=== PATIENT | female | born 1990 | race Caucasian/White ===

== ENCOUNTER 2023-01-04 08:00 | Outpatient (CLI) | payer OTHER ==
[2023-01-04 16:53] LABS: BILIRUBIN,URINE NEGATIVE (NEGATIVE); GLUCOSE, URINE (UA) NEGATIVE (NEGATIVE); KETONES,URINE (UA) NEGATIVE (NEGATIVE); LEUKOCYTE ESTERASE, URINE NEGATIVE (NEGATIVE); NITRITE,URINE NEGATIVE (NEGATIVE); OCCULT BLOOD,URINE NEGATIVE (NEGATIVE); PH,URINE 6.5 PH (5.0-7.5); PROTEIN,URINE NEGATIVE (NEGATIVE); UROBILINOGEN,URINE 0.2 (NORMAL) E.U./dL (NORMAL)
[2023-01-04 16:55] LABS: CLARITY,URINE CLEAR (CLEAR)
[2023-01-04 17:01] LABS: BACTERIA,URINE Few /HPF (None Seen); RBC,URINE None Seen /HPF (0-5); SQUAMOUS EPITHELIAL CELL,UR FEW Squamous (<= Few); WBC,URINE 0-3 /HPF (0-5)
== END 2023-01-04 23:59 | disposition home or self-care (01) ==
LOC: LAB.WC 08:00
PROVIDERS: ATTEND Nurse Practitioner
DX: Z34.90 Encounter for supervision of normal pregnancy, unspecified, unspecified trimester (principal)
CPT/HCPCS: 81001; 87086

== ENCOUNTER 2023-01-07 12:37 | Outpatient (CLI) | payer OTHER ==
[2023-01-07 18:22] LABS: BASOPHILS % (AUTO) 0.5 %; EOSINOPHILS % (AUTO) 0.5 %; HCT - HEMATOCRIT 38.1 % (37.0-47.0); HGB - HEMOGLOBIN 12.5 g/dL (12.0-16.0); LYMPHOCYTES # (AUTO) 1.8 10^3/uL (1.5-3.5); LYMPHOCYTES % (AUTO) 24.2 %; MEAN CORPUSCULAR HEMOGLOBIN 29.8 pg (27.0-31.0); MEAN CORPUSCULAR HGB CONC 32.8 g/dL (32.0-36.0); MEAN CORPUSCULAR VOLUME 90.7 fL (81.0-99.0); MEAN PLATELET VOLUME 12.1 fL (7.9-10.8); MONOCYTES # (AUTO) 0.4 10^3/uL (0.0-1.0); MONOCYTES % (AUTO) 5.8 %; NEUTROPHILS # (AUTO) 5.2 10^3/uL (1.5-6.6); NEUTROPHILS % (AUTO) 68.9 %; PLT - PLATELET COUNT 270 10^3/uL (130-450); RED CELL DISTRIBUTION WIDTH 12.5 % (12.0-15.0); WHITE BLOOD COUNT 7.6 x10^3/uL (4.8-10.8)
[2023-01-07 18:29] LABS: BILIRUBIN,URINE NEGATIVE (NEGATIVE); GLUCOSE, URINE (UA) NEGATIVE (NEGATIVE); KETONES,URINE (UA) NEGATIVE (NEGATIVE); LEUKOCYTE ESTERASE, URINE NEGATIVE (NEGATIVE); NITRITE,URINE NEGATIVE (NEGATIVE); OCCULT BLOOD,URINE NEGATIVE (NEGATIVE); PH,URINE 7.5 PH (5.0-7.5); PROTEIN,URINE NEGATIVE (NEGATIVE); UROBILINOGEN,URINE 0.2 (NORMAL) E.U./dL (NORMAL)
[2023-01-07 19:13] LABS: BACTERIA,URINE Few /HPF (None Seen); CLARITY,URINE CLEAR (CLEAR); RBC,URINE None Seen /HPF (0-5); SQUAMOUS EPITHELIAL CELL,UR FEW Squamous (<= Few); WBC,URINE 0-3 /HPF (0-5)
[2023-01-09 03:10] LABS: HBsAG SCREEN Negative (Negative)
[2023-01-09 04:09] LABS: RPR Non Reactive (Non Reactive)
[2023-01-09 09:09] LABS: VARICELLA-ZOSTER AB IGG 167 index (Immune >165)
[2023-01-09 20:07] LABS: HCV AB Non Reactive (Non Reactive); HIV SCREEN 4TH GENERATION Non Reactive (Non Reactive)
== END 2023-01-07 12:38 | disposition home or self-care (01) ==
LOC: LAB.N 12:37
PROVIDERS: ATTEND Nurse Practitioner
DX: Z34.90 Encounter for supervision of normal pregnancy, unspecified, unspecified trimester (principal)
CPT/HCPCS: 36415; 81001; 85025; 86592; 86762; 86787; 86803; 86850; 86900; 86901; 87086; 87340; 87389

== ENCOUNTER 2023-01-14 08:00 | Outpatient (CLI) | payer OTHER ==
[2023-01-15 18:04] LABS: CHLAMYDIA TRACHOMATIS DNA NEGATIVE (NEGATIVE); NEISSERIA GONORRHOEAE DNA NEGATIVE (NEGATIVE); TRICHOMONAS VAGINALIS DNA NEGATIVE (NEGATIVE)
== END 2023-01-14 23:59 | disposition home or self-care (01) ==
LOC: LAB.WC 08:00
PROVIDERS: ATTEND Obstetrics & Gynecology
DX: Z11.3 Encounter for screening for infections with a predominantly sexual mode of transmission (principal)
CPT/HCPCS: 87491; 87591; 87661

== ENCOUNTER 2023-01-16 13:38 | Outpatient (CLI) | payer OTHER ==
--- NOTE | 2023-01-16 14:58 | Ultrasound Report ---
PROCEDURE: OB First Trimester w/TV INDICATIONS: POSITIVE TEST OUTSIDE/PRIOR DATING DATA: Last menstrual period (LMP): 11/07/2022. LMP-based estimated date of delivery (JONATHAN): 08/14/2023 First dating scan (date and location): 01/16/2023. Estimated date of delivery (JONATHAN) from first dating scan: 08/14/2023. TECHNIQUE: Real-time scanning was performed of the fetus and maternal pelvic organs, with image documentation. Endovaginal scanning was also performed to better visualize the fetus and maternal ovaries. COMPARISON: None. FINDINGS: Intrauterine gestational sac present. Embryo: 2.6 cm, 9 weeks 3 days Heart rate: 166 bpm. Other: Small perigestational fluid collection, lower uterine segment, 0.5 x 0.6 x 0.9 cm. Measurement variability in dating: +/- 4 weeks by LMP, +/- 7 days by mean sac diameter (use before 6 weeks gestation if crown-rump length not able to be measured), +/- 5 days by crown-rump length (6-12 weeks gestation). Maternal organs: Ovaries appear within normal limits. IMPRESSION: 1. Living early first trimester intrauterine with crown-rump length and heartbeat. 2. Small perigestational hemorrhage. Reviewed by: Jose Joseph MD on 01/16/2023 2:56 PM PST Approved by: Jose Joseph MD on 01/16/2023 2:56 PM PST Station ID: [id number]
== END 2023-01-16 13:39 | disposition home or self-care (01) ==
LOC: DI 13:38
PROVIDERS: ATTEND Nurse Practitioner
DX: O46.91 Antepartum hemorrhage, unspecified, first trimester (principal); Z3A.09 9 weeks gestation of pregnancy

== ENCOUNTER 2023-03-25 16:22 | Outpatient (CLI) | payer OTHER ==
[2023-03-27 04:08] LABS: ALPHA-1-ANTITRYPSIN SERUM 194 mg/dL (100-188)
[2023-03-28 21:07] LABS: AFP MOM 0.97 (.); AFP VALUE 63.2 ng/mL (.); DIA MOM 0.88 (.); DIA VALUE 177.76 pg/mL (.); DSR (BY AGE) 1 IN 613 (.); DSR (SECOND TRIMESTER) 1 IN 10000 (.); GEST. AGE ON COLLECTION DATE 19.7 WEEKS (.); HCG MOM 2.09 (.); HCG VALUE 64435 mIU/mL (.); INSULIN DEP DIABETES No (.); MULTIPLE GESTATION No (.); OPEN SPINA BIFIDA RISK 1 IN 10000 (.); RACE Caucasian (.); RESULTS Report (.); TEST RESULTS *Screen Negative* (.); TRISOMY 18 RISK Not increased (.); UE3 MOM 1.33 (.); UE3 VALUE 3.05 ng/mL (.); WEIGHT 117 lbs (.)
== END 2023-03-25 16:23 | disposition home or self-care (01) ==
LOC: LAB.N 16:22
PROVIDERS: ATTEND Obstetrics & Gynecology
DX: O99.519 Diseases of the respiratory system complicating pregnancy, unspecified trimester (principal); J93.83 Other pneumothorax
CPT/HCPCS: 36415; 81511; 82103

== ENCOUNTER 2023-04-02 08:41 | Outpatient (CLI) | payer OTHER ==
--- NOTE | 2023-04-02 11:02 | Ultrasound Report ---
PROCEDURE: OB 14+ Weeks INDICATIONS: SUPERVISION OF OUTSIDE/PRIOR DATING DATA: Last menstrual period (LMP): 11/07/2022. LMP-based estimated date of delivery (JONATHAN): 08/13/2022. First dating scan (date and location): 01/16/2023. Estimated date of delivery (JONATHAN) from first dating scan: 08/18/2023. The below data below was generated using the clinical JONATHAN of 08/14/2023 TECHNIQUE: Real-time scanning was performed of the fetus, with image documentation and biometric measurements. Endovaginal scanning: Not performed. COMPARISON: OB ultrasound 01/16/2023. FINDINGS: General: A single living intrauterine gestation is present. Presentation: Vertex Placenta: Placental position is anterior, without previa. Amniotic fluid index: 13.5 cm, within normal limits for gestational age. Largest pocket 4.8 cm. heart rate: 133 beats per minute. Maternal cervical canal: 3.9 cm long; normal length is 2.5 cm or more. biometrics: Biparietal diameter: 4.6 cm, 20 weeks 0 days. 18th percentile. Head circumference: 17.6 cm, 20 weeks 1 day. 13th percentile. Abdominal circumference: 15.4 cm, 20 weeks 4 days. 35th percentile. Femur length: 3.2 cm, 19 weeks 6 days. 12 percentile. Estimated gestational age from initial scan: 20 weeks 6 days Composite gestational age from present scan: 20 weeks 0 days Estimated weight and percentile: 342 grams, 17th percentile. Measurement variability for biometric dating: +/- 10 days from 12-20 weeks gestation, +/- 2 weeks fro m 20-30 weeks gestation, +/- 3 weeks for 30 weeks gestation or later. Anatomic survey: Neuro: Ventricles are non-dilated at less than 10 mm. Cisterna magna is normal at 3-11 mm. Cerebel lum is normal in size and morphology. Nuchal skin fold: Normal at less than 6 mm between 14-20 weeks gestational age. Face: Nose and lips, facial profile are normal. Spine: No evidence for spina bifida. Heart: 4-chambered heart is present, with normal ventricular outflow tracts. Diaphragm: Diaphragm is intact. Stomach: Left-sided stomach is present. Kidneys: No hydronephrosis. Normal is less than 5 mm in 2nd trimester, less than 7 mm in 3rd trimester. Cord: 3-vessel cord has orthotopic insertion. Bladder: Normal in size. Extremities: Not fully evaluated. Extremities are present. IMPRESSION: 1. Davis living intrauterine at 20 weeks 0 days based on today's ultrasound. This is co ncordant with the prior dating. Fetus is in the 17th percentile for weight. 2. Normal placenta and amniotic fluid. 3. extremities are not fully evaluated. Otherwise normal anatomic survey. Consider follow -up OB ultrasound. Reviewed by: Ladarius Bass MD on 04/02/2023 11:00 AM [facility] Approved by: Ladarius Bass MD on 04/02/2023 11:00 AM [facility] Station ID: [id number]
== END 2023-04-02 08:42 | disposition home or self-care (01) ==
LOC: DI 08:41
PROVIDERS: ATTEND Obstetrics & Gynecology
DX: Z34.92 Encounter for supervision of normal pregnancy, unspecified, second trimester (principal)

== ENCOUNTER 2023-04-30 10:23 | Outpatient (CLI) | payer OTHER ==
--- NOTE | 2023-04-30 19:00 | Ultrasound Report ---
PROCEDURE: OB Follow up INDICATIONS: SUPERVISION OF OUTSIDE/PRIOR DATING DATA: Last menstrual period (LMP): 11/07/2022. LMP-based estimated date of delivery (JONATHAN): 08/13/2022. First dating scan (date and location): Unknown Estimated date of delivery (JONATHAN) from first dating scan: Unknown. The below data below was generated using the clinical JONATHAN of 08/14/2023 TECHNIQUE: Real-time scanning was performed of the fetus, with image documentation and biometric measurements. COMPARISON: OB ultrasound 04/02/2023 FINDINGS: General: A single living intrauterine gestation is present. Presentation: Variable Placenta: Placental position is anterior, without previa. Amniotic fluid index: 13.1 cm, within normal limits for gestational age. Largest pocket 4.9 cm heart rate: 133 beats per minute. Maternal cervical canal: Closed . biometrics: Clinical gestational age : 24 weeks 6 days Other: Extremities are within normal limits. IMPRESSION: Single live intrauterine with gestational age of 24 weeks 6 days. Extremities are within normal limits. Reviewed by: Laurie Yo MD on 04/30/2023 6:59 PM PST Approved by: Laurie Yo MD on 04/30/2023 6:59 PM PST Station ID: [id number]
== END 2023-04-30 10:24 | disposition home or self-care (01) ==
LOC: DI 10:23
PROVIDERS: ATTEND Obstetrics & Gynecology
DX: Z34.92 Encounter for supervision of normal pregnancy, unspecified, second trimester (principal)

== ENCOUNTER 2023-05-27 10:53 | Outpatient (CLI) | payer OTHER ==
[2023-05-27 17:50] LABS: HCT - HEMATOCRIT 36.1 % (37.0-47.0); HGB - HEMOGLOBIN 11.5 g/dL (12.0-16.0); MEAN CORPUSCULAR HEMOGLOBIN 31.1 pg (27.0-31.0); MEAN CORPUSCULAR HGB CONC 31.9 g/dL (32.0-36.0); MEAN CORPUSCULAR VOLUME 97.6 fL (81.0-99.0); MEAN PLATELET VOLUME 10.9 fL (7.9-10.8); RED BLOOD COUNT 3.7 10^6/uL (4.20-5.40); RED CELL DISTRIBUTION WIDTH 13.1 % (12.0-15.0); WHITE BLOOD COUNT 8.3 x10^3/uL (4.8-10.8)
== END 2023-05-27 10:54 | disposition home or self-care (01) ==
LOC: LAB.N 10:53
PROVIDERS: ATTEND Nurse Practitioner
DX: Z34.90 Encounter for supervision of normal pregnancy, unspecified, unspecified trimester (principal)
CPT/HCPCS: 36415; 82950; 85027

== ENCOUNTER 2023-06-13 10:49 | Emergency (ER) | payer OTHER ==
[2023-06-13 11:14] VITALS: BP 105/53; O2SAT 100
--- NOTE | 2023-06-13 11:29 | ED Physician Documentation ---
PD HPI SKIN - Stated complaint Stated Complaint: BODY RASH,ITCHY - Chief complaint Chief Complaint: Wound - Additional information Additional information: 32-year-old female 31 weeks third trimester presents emergency department for a mild rash to right finger. Patient says that it started out as a flat rash that has eventually become raised and itchy and dry. This has been going on for a month now she now noticed it very mildly to her right face on her face is minimally itchy it is flat not raised she has not changed any recent product no new medications. She also reports that she is having increased acid reflux. She is an appoint with her [facility] on Saturday she is having no shortness of breath no chest pain no oral swelling no rash elsewhere on her body she says that she is here to the emergency department to try and find the source of what is causing this rash but is not wanting any medications or topicals to help with symptoms she just wants to know why the rash is here PD PAST MEDICAL HISTORY - Past Medical History Past Medical History: No Other Past Medical History: Spontaneous Pneumothorax Bilaterally 2014 and 2016 - Past Surgical History Past Surgical History: No - Present Medications Home Medications: Ambulatory Orders Medication Instructions Recorded Confirmed No122/Iron/Folic Acid 1 tab PO DAILY 06/13/23 06/13/23 [ Multi Tablet] - Allergies Allergies/Adverse Reactions: Allergies Allergy/AdvReac Type Severity Reaction Status Date / Time No Known Drug Allergies Allergy Verified 06/13/23 11:06 - Social History Does the pt smoke?: No Smoking Status: Never smoker Does the pt drink ETOH?: No PD ED PE NORMAL - Vitals Vital signs reviewed: Yes - General General: Alert and oriented X 3, No acute distress, Well developed/nourished - HEENT HEENT: PERRL, EOMI, Moist mucous membranes, Pharynx benign, Dentition benign - Neck Neck: No JVD - Respiratory Respiratory: No respiratory distress, Clear bilaterally - Abdomen Abdomen: Other () - Derm Derm: Other (left mild finger rash with dry skin, mild flat rash to right side of face.) - Psych Psych: Normal mood, Normal affect Results - Vitals Vitals: Vital Signs - 24 hr 06/13/23 11:00 Temperature 36.2 C L Heart Rate 79 Respiratory 16 Rate Blood Pressure 105/53 L O2 Saturation 100 Oxygen O2 Source Room air PD Medical Decision Making - ED course ED course: 32-year-old female presents the emergency department for mild rash. Patient says that she is not interested in treatment for the rash associated that she is fine with the symptoms of the rash but she just wants to know why she is getting the rash. I informed the patient that unfortunately in the emergency department we are unable to do skin testing or allergy testing that we are only here to treat emergent rash symptoms. [facility] did [facility] practitioner Aminta villar who said that she would be willing to see patient in her office at next available appointment. Patient was given Aminta Marinelli contact information will be reaching out to her today to make an appointment. Patient was told to follow-up with [facility] outpatient as well for further evaluation. Her vitals are stable she says that she denies any issues or concerns with her baby feels active in her belly. She is safe for discharge at this time I am not concerned this are related to any sort of anaphylaxis. Patient has all resources available to her to help further investigate what is going on with his very mild rash and all questions have been answered. Departure - Departure Disposition: 01 Home, Self Care Clinical Impression: Rash Instructions: Rash Skin Self Care Comments: Thank you for trusting us with your care, we have evaluated you for rash to right finger and the right portion of your face. We discussed possibly starting you on some topical medications but you wanted to hold off until you are able to follow-up with nurse practitioner Aminta Villar. Give her office a call you have her contact information on your phone she is anticipating a phone call from you and we will try to get you in as soon as possible. Please come back to the emergency department if you are noticing any shortness of breath, difficulty breathing or eating, or rash that is spreading throughout your entire body. Forms: PCP List Discharge Date/Time: 06/13/23 11:58
== END 2023-06-13 11:58 | disposition home or self-care (01) ==
LOC: ED 10:49
DX: O99.893 Other specified diseases and conditions complicating puerperium (principal); R21 Rash and other nonspecific skin eruption; Z3A.31 31 weeks gestation of pregnancy
CPT/HCPCS: 99281; 99283

== ENCOUNTER 2023-07-19 08:00 | Outpatient (CLI) | payer OTHER | END 2023-07-19 23:59 | disposition home or self-care (01) | LOC: LAB.WC 08:00 | PROVIDERS: ATTEND Obstetrics & Gynecology | DX: Z36.85 Encounter for antenatal screening for Streptococcus B (principal) | CPT/HCPCS: 87797 ==

== ENCOUNTER 2023-07-23 14:35 | Outpatient (CLI) | payer OTHER ==
--- NOTE | 2023-07-23 16:00 | Ultrasound Report ---
PROCEDURE: OB Follow up INDICATIONS: UTERINE SIZE DATE DISCREPENCY OUTSIDE/PRIOR DATING DATA: Last menstrual period (LMP): 11/07/2022. LMP-based estimated date of delivery (JONATHAN): 08/14/2023. First dating scan (date and location): 01/16/2023. Estimated date of delivery (JONATHAN) from first dating scan: 08/14/2023. The below data below was generated using the clinical JONATHAN of 08/14/2023 TECHNIQUE: Real-time scanning was performed of the fetus, with image documentation and biometric measurements. Endovaginal scanning: Not performed. COMPARISON: 04/30/2023 and 04/02/2023 FINDINGS: General: A single living intrauterine gestation is present. Presentation: Vertex Placenta: Placental position is anterior, without previa. Amniotic fluid index: 14.2 cm, deepest pocket is 6.0 cm, normal for gestational age. heart rate: 153 beats per minute. Maternal cervical canal: Closed and 3.9 cm long; normal length is 2.5 cm or more. biometrics: Biparietal diameter: 9.3 cm, 37 weeks 6 days, 88th percentile Head circumference: 34.0 cm, 39 weeks 1 day, 77th percentile Abdominal circumference: 33.1 cm, 37 weeks 0 days, 68th percentile Femur length: 6.7 cm, 34 weeks 5 days, 6th percentile Estimated gestational age from initial scan: 36 weeks 6 days Composite gestational age from present scan: 37 weeks 1 day Estimated weight and percentile: 3025 g, 53rd percentile Measurement variability in biometric dating: +/- 10 days from 12-20 weeks gestation, +/- 2 weeks from 20-30 weeks gestation, +/- 3 weeks at 30 weeks gestation or more. Other: Not applicable. IMPRESSION: Single live intrauterine is in vertex presentation. Estimated weight at the 53rd percentile. There is disproportionately short femur length, however composite gestational age is within 2 days of the expected gestational age. Correlate with biparietal height. Normal amniotic fluid volume. Reviewed by: Jeannie Morris MD on 07/23/2023 3:59 PM PDT Approved by: Jeannie Morris MD on 07/23/2023 3:59 PM PDT Station ID: [id number]
== END 2023-07-23 14:36 | disposition home or self-care (01) ==
LOC: DI 14:35
PROVIDERS: ATTEND Nurse Practitioner
DX: O26.843 Uterine size-date discrepancy, third trimester (principal); Z3A.37 37 weeks gestation of pregnancy

== ENCOUNTER 2023-08-17 18:34 | Outpatient (CLI) | payer OTHER ==
[2023-08-17 19:01] VITALS: BP 119/86
== END 2023-08-17 21:20 | disposition home or self-care (01) ==
LOC: WFO 18:34 → FBP 18:35 → WFO 21:20
PROVIDERS: ATTEND Obstetrics & Gynecology
DX: O47.1 False labor at or after 37 completed weeks of gestation (principal); Z3A.40 40 weeks gestation of pregnancy
CPT/HCPCS: 99213; 99214

== ENCOUNTER 2023-08-18 06:31 | Inpatient (IN) | payer OTHER ==
--- NOTE | 2023-08-18 09:34 | HISTORY & PHYSICAL EXAMINATION ---
Admit History - Visit Reason Visit Reason: Contractions - : 1 Parity: 0 Care: positive: [facility] Risk/History: positive: None Complications This : positive: None Smoking Status: Never smoker - Mother's Labs Mother's Blood Type: positive: O Mother's RH: positive: Positive GBS: positive: Group B Strep Positive Rubella Status: positive: Immune - Other Maternal History Other Maternal History: HPI: This 33yo @ 40+4 weeks by sure LMP and confirmed by 9+3 week ultrasound. She came into triage last night a few hours after her contractions s tarted. She contracted all last night and didn't have any sleep. Contractions became stronger and stronger. Upon arrival her cervix was 4/100/-3 posterior and vertex with intact membranes. She ambulated x2 hours and continue to contract, cervix changed to 5/100-3 posterior. We reviewed management options at length. She initially decided to go home to say goodbye to family but later changed her mind and desired to say for expectant managment. She has been a patient of [facility] for the duration of her which has remained uncomplicated. No Headache, visual changes or right upper quadrant abdominal pain. Denies nausea and vomiting. Denies urinary urgency or dysuria. ROS: All other symptoms reviewed and were negative except per HPI. LMP: 11/07/22 JONATHAN by LMP: 08/14/23 US: 01/16/2023 @ 9+3 c/w LMP Final JONATHAN: 08/14/2023 FOB: [facility], no risk of deployment. h/o pneumothorax x2 - once L (2014) & once R (2015) - will order [id number] testing. No cause found. ELEVATED [id number] -- also, this can be elevated in . SO: retest 6w post , if still elevated then refer to [facility] pul[facility] specialist in [place] for an opion. Lumbar/hip pain. PT referral 05/06 visit. Lagging biometry - -EFW on 08/01: 3025g, 53% -Femur length: 6th percentile Pre- Weight:112.0 BMI: 19.91 Blood type: O+ Antibody: Negative CBC: PLT 270 HCT 38.1 HGB 12.5 RUB: 16 VZV: 167 HBsAg: Negaive HepC: NR RPR/AB-EIA: NR HIV: NR PAP: 01/14/23 negative/HPV negative GC/CT: 01/14/2023 negative HSV: denies self/partner Genetic testing: desires NIPT. Quad negative Covid: not vaccinated Flu: declines FAS: 04/02 Placenta: anterior without previa Cord: 3VC PATRICA: 13.5 EFW: 342g 17%ile; extremities not fully evaluated. Follow-up ordered. 04/30- F/U us complete 50gm OGCT: 113 3HR GTT: TDAP: declines Breast Pump: 05/26 3rd trimester PLT 206 HCT 36.1 HGB 11.5 GBS:07/18 NKDA POSITIVE Delivery plan: Anticipate . Contraception: GBS POS- NO KNOWN DRUGS Physical exam: Normocephalic, atraumatic Heart RRR w/o M/G/R Lungs CTAB Abdomen gravid, soft, nontender. EFW 3200g FHR baseline 140, moderate variability, + accelerations, no decelerations Contractions palpate moderate every 3-6 minutes with soft resting tone SVE 5/100 posterior, vertex, membranes intact Bilateral LE's no edema Mood is good. Assessment: 33yo G1 PO 40+4 by sure LMP and confirmed by 9+3 weeks ultrasound Early labor FHR Cat I GBS POS Plan: Admit to [facility] for Expectant management Continuous monitoring/ Intermittent heart rate auscultation as appropriate Jacuzzi PRN. Nitrous oxide PRN. Epidural per maternal request Anticipate . - HPI Current EDU 08/20/23 Gestation 39 Weeks and 5 Days 1 Para 0 Vital Signs Temperature 36.5 C 08/18/23 06:47 Heart Rate 67 08/18/23 06:47 Respiratory Rate 16 08/18/23 06:47 Blood Pressure 129/78 08/18/23 06:47 Temperature 36.5 C 08/18/23 06:47 Heart Rate 67 08/18/23 06:47 Respiratory Rate 16 08/18/23 06:47 Blood Pressure 129/78 08/18/23 06:47 O2 Saturation If not protocol: Oxygen Flow, liters/minute - NST Procedure NST Procedure Start Date 08/18/23 Start Time 06:45 Stop Time 07:14 Vibroacoustic Stimulation Used No Patient States Movement Yes Meds/Allgy - Home Medications Home Medications: Ambulatory Orders Medication Instructions Recorded Confirmed No122/Iron/Folic Acid 1 tab PO DAILY 06/13/23 06/13/23 [ Multi Tablet] - Allergies Allergies/Adverse Reactions: Allergies Allergy/AdvReac Type Severity Reaction Status Date / Time No Known Drug Allergies Allergy Verified 06/13/23 11:06 Physical - Abdominal Exam Vital Signs: Temp Pulse Resp BP Pulse Ox O2 Flow Rate 36.5 C 67 16 129/78 08/18/23 06:47 08/18/23 06:47 08/18/23 06:47 08/18/23 06:47 Plan for Labor - Plan For Labor I expect patient to be DC'd or transferred within 96 hours.: Yes
[2023-08-18] MEDS ORDERED: lidocaine 1% 20 ML MDV ID PRN (09:42)
[2023-08-18] MEDS ORDERED: miSOPROStoL 200 MCG TABLET PR PRN (09:42)
[2023-08-18] MEDS ORDERED: ACETAMINOPHEN 500 MG TABLET PO PRN (09:42)
[2023-08-18] MEDS ORDERED: miSOPROStoL 200 MCG TABLET BC PRN (09:42)
[2023-08-18] MEDS ORDERED: fentaNYL 100 MCG/2 ML VIAL IVP PRN (09:42)
[2023-08-18] MEDS ORDERED: METHYLERGONOVINE 0.2 MG/ML VIAL IM PRN (09:42)
[2023-08-18] MEDS ORDERED: OXYTOCIN 10 UNIT/ML VIAL IM PRN (09:42)
[2023-08-18] MEDS ORDERED: TERBUTALINE 1 MG/ML VIAL SUBQ PRN (09:42)
[2023-08-18] MEDS ORDERED: OXYTOCIN/SODIUM CHLORIDE 500 ML IV PRN (09:42)
[2023-08-18] MEDS ORDERED: TRANEXAMIC ACID IN NACL 1,000 MG/100 ML BAG IV PRN (09:42)
[2023-08-18] MEDS ORDERED: CARBOPROST TROMETHAMINE 250 MCG/ML VIAL IM PRN (09:42)
[2023-08-18] MEDS: LACTATED RINGERS 1,000 ML IV PRN (10:00)
[2023-08-18] MEDS: AMPICILLIN 2 GM in SODIUM CHLORIDE 0.9% MINIBAG 100 ML IV ONE (10:01)
[2023-08-18 13:51] LABS: BASOPHILS % (AUTO) 0.2 %; EOSINOPHILS # (AUTO) 0.1 10^3/uL (0.0-0.7); EOSINOPHILS % (AUTO) 0.6 %; HCT - HEMATOCRIT 41.6 % (37.0-47.0); HGB - HEMOGLOBIN 13.4 g/dL (12.0-16.0); LYMPHOCYTES # (AUTO) 1.6 10^3/uL (1.5-3.5); LYMPHOCYTES % (AUTO) 12.8 %; MEAN CORPUSCULAR HEMOGLOBIN 30.5 pg (27.0-31.0); MEAN CORPUSCULAR HGB CONC 32.2 g/dL (32.0-36.0); MEAN CORPUSCULAR VOLUME 94.8 fL (81.0-99.0); MONOCYTES # (AUTO) 0.5 10^3/uL (0.0-1.0); MONOCYTES % (AUTO) 4.1 %; NEUTROPHILS # (AUTO) 10.2 10^3/uL (1.5-6.6); NEUTROPHILS % (AUTO) 81.5 %; PLT - PLATELET COUNT 209 10^3/uL (130-450); RED BLOOD COUNT 4.39 10^6/uL (4.20-5.40); RED CELL DISTRIBUTION WIDTH 13.4 % (12.0-15.0); WHITE BLOOD COUNT 12.6 x10^3/uL (4.8-10.8)
[2023-08-18] MEDS: AMPICILLIN 1 GM in SODIUM CHLORIDE 0.9% MINIBAG 100 ML IV SCH (14:05)
--- NOTE | 2023-08-18 20:34 | PROVIDER PROGRESS NOTE ---
Labor Progress Note - Uterine Monitoring Uterine Monitoring Mode: positive: External toco Contraction Frequency (min/apart): 2-4 Contraction Intensity: positive: Moderate to strong Uterine Resting Tone: positive: Soft - Monitoring Monitor Mode: positive: External ultrasound Heart Rate Baseline: 145 Heart Rate Variability: positive: Moderate (6-25 bmp) Accelerations: positive: Present, 15x15 Decelerations: positive: None Strip Review: positive: Category I - Vaginal Exam Dilation (in cm): 7 Effacement (%): 100 Station: -1 Cervical Position: Anterior - Labor Progress Note Labor Progress Note/Additional Text: S: Intermittent time in labor tub. Breathing and moving through contractions for pain management. Increasing discomfort with contractions. Believes she may still want an epidural but feels she is coping well at the moment. Continues to decline augmentation. Feeling significant pressure in her lower back during contractions. Tolerating position changes, coping well, understands situation after our discussions, fells well informed. O: FHR baseline 145, moderate variability, + accels, - decels. Overall reassuring FHT with moderate variability maintained throughout. Contractions palpate moderately with soft resting tone. SVE 7/100/-1, anterior. Vertex. Membranes intact. Will reach out to our clinical team if she desires repeat cervical exam. A: 33yo @ 40+4 wks gestation by sure LMP Spontaneous onset active labor without augmentation or pharmaceutical pain management. FHR Category I GBS positive- ampicillin x3 doses Rh Neg P: Intermittent monitoring PRN nitrous and Epidural per maternal request. encourage position changes, ambulation, Jacuzzi and birthing stool Reviewed plan of care with patron attendant physician Anticipate .
[2023-08-19] MEDS ORDERED: ROPIVACAINE 0.2% 200 MG/100 ML BAG EP ONE (01:27)
[2023-08-19] MEDS ORDERED: LIDOCAINE 2%-EPI 1:100000 20 ML MDV ONE (01:27)
[2023-08-19] MEDS ORDERED: NALOXONE 0.4 MG/ML VIAL IVP PRN ×3 (01:54→15:14)
[2023-08-19] MEDS ORDERED: ePHEDrine 50 MG/ML VIAL IVP PRN ×2 (01:54→15:05)
[2023-08-19] MEDS ORDERED: ROPIVACAINE 0.2% 200 MG/100 ML BAG EP PRN (01:54)
--- NOTE | 2023-08-19 02:29 | ANESTHESIA ---
Pre-Anesthesia VS, & Labs - Diagnosis Active labor - Procedure vaginal delivery Vital Signs: Temp Pulse Resp BP Pulse Ox O2 Flow Rate 37.0 C 67 16 129/78 08/18/23 16:05 08/18/23 06:47 08/18/23 06:47 08/18/23 06:47 Height: 5 ft 3 in Weight (kg): 69.853 kg Body Mass Index: 27.3 BMI Classification: Overweight - NPO Other (clear liquids during labor) - Is Patient ?: Yes - Lab Results Current Lab Results: Laboratory Tests 08/18/23 09:45: WBC 12.6 H, RBC 4.39, Hgb 13.4, Hct 41.6, MCV 94.8, MCH 30.5, MCHC 32.2, RDW 13.4, Plt Count 209, MPV 13.0 H, Neut # (Auto) 10.2 H, Lymph # (Auto) 1.6, Josephine # (Auto) 0.5, Eos # (Auto) 0.1, Baso # (Auto) 0.0, Absolute Nucleated RBC 0.00, Nucleated RBC % 0.0 08/18/23 09:45: Blood Type O POSITIVE, Antibody Screen NEGATIVE Lab results reviewed: Yes Fish Bones: 08/18/23 09:45 Home Medications and Allergies Active Medications Acetaminophen (Acetaminophen 500 Mg Tablet) 1,000 mg PO Q8H PRN PRN Reason: Mild Pain or Fever>38C(100.4F) Carboprost Tromethamine (Carboprost Tromethamine 250 Mcg/Ml Vial) 250 mcg IM .ONCE PRN PRN Reason: Hemorrhage Ephedrine Sulfate (Ephedrine 50 Mg/Ml Vial) 5 mg IVP Q5M PRN PRN Reason: For SBP<100;give until SBP>100 Fentanyl (Fentanyl 100 Mcg/2 Ml Vial) 50 mcg IVP Q1H PRN PRN Reason: Severe Pain (score 7-10) Lactated Ringer's (Lr) 500 mls @ 999 mls/hr IV PRN PRN PRN Reason: hypotension/ distress Last Admin: 08/18/23 10:00 Dose: 999 mls/hr Oxytocin/Sodium Chloride (Pitocin/Sodium Chloride) 500 mls @ 999 mls/hr IV PRN PRN; Protocol PRN Reason: POST- HEMORR PREVENTION Tranexamic Acid (Tranexamic 1,000 Mg/100ml-Nacl) 1,000 mg in 100 mls @ 600 mls/hr IV Q30M PRN PRN Reason: EBL >1200mL and within 3hr Ampicillin Sodium 1 gm/ Sodium (Chloride) 100 mls @ 200 mls/hr IV Q4H SARINA Stop: 08/20/23 14:00 Last Infusion: 08/18/23 22:53 Dose: Infused Ropivacaine (Naropin 0.2%) 200 mg in 100 mls @ 0 mls/hr EP PRN PRN; Protocol PRN Reason: PAIN Lidocaine HCl (Lidocaine 1% 20 Ml Mdv) 20 ml ID .ONCE PRN PRN Reason: PERINEAL REPAIR Stop: 08/21/23 09:42 Methylergonovine Maleate (Methylergonovine 0.2 Mg/Ml Vial) 0.2 mg IM .ONCE PRN PRN Reason: Hemorrhage Misoprostol (Misoprostol 200 Mcg Tablet) 600 mcg BC .ONCE PRN PRN Reason: Hemorrhage Misoprostol (Misoprostol 200 Mcg Tablet) 800 mcg SC .ONCE PRN PRN Reason: Hemorrhage Naloxone HCl (Naloxone 0.4 Mg/Ml Vial) 0.1 mg IVP Q2M PRN PRN Reason: RR<8 Oxytocin (Oxytocin 10 Unit/Ml Vial) 10 unit IM .ONCE PRN PRN Reason: Step One if no IV access. Sodium Chloride (Sodium Chloride Flush 0.9% 10 Ml Syringe) 10 ml IVP PRN PRN PRN Reason: NEEDED PER PROVIDER ORDERS Sodium Chloride (Sodium Chloride Flush 0.9% 10 Ml Syringe) 10 ml IVP Q8H SARINA Terbutaline Sulfate (Terbutaline 1 Mg/Ml Vial) 0.25 mg SUBQ .ONCE PRN PRN Reason: Tachystole No122/Iron/Folic Acid [ Multi Tablet] 1 tab PO DAILY 06/13/23 Allergies/Adverse Reactions: Allergies Allergy/AdvReac Type Severity Reaction Status Date / Time No Known Drug Allergies Allergy Verified 06/13/23 11:06 Anes History & Medical History - Anesthetic History Anesthesia Complications: reports: No previous complications - Medical History Cardiovascular: reports: None Pulmonary: reports: Other (Spontaneous pneumothorax) Gastrointestinal: reports: None Urinary: reports: None Neuro: reports: None Musculoskeletal: reports: None Endocrine/Autoimmune: reports: None Blood Disorders: reports: None Skin: reports: None Smoking Status: Never smoker Psychosocial: reports: No issues indicated History of Cancer?: No - Surgical History Cardiothoracic: reports: Other (Bilateral thoracotomy) Gynecologic: reports: Breast implants - Obstetrical History : 1 Parity: 0 Events: reports: None Complications: reports: None Exam General: Alert, Oriented x3, Cooperative, No acute distress Dental: WNL Mouth Openin Fingerbreadth Neck Mobility: Normal Mallampati classification: I Thyromental Distance: 4-6 cm Mental/Cognitive Status: Alert/Oriented X3, Normal for patient Plan Anesthesia Type: Epidural Consent for Procedure(s) Verified and Reviewed: Yes Code Status: Attempt Resuscitation ASA classification: 2-Mild systemic disease Is this case an emergency?: No
[2023-08-19] MEDS: LACTATED RINGERS 1,000 ML IV SCH (04:51)
--- NOTE | 2023-08-19 06:37 | PROVIDER PROGRESS NOTE ---
Labor Progress Note - Uterine Monitoring Uterine Monitoring Mode: positive: External toco Contraction Frequency (min/apart): 2-3.5 : 140 Contraction Intensity: positive: Strong Uterine Resting Tone: positive: Soft - Monitoring Monitor Mode: positive: External ultrasound Heart Rate Baseline: 130 Heart Rate Variability: positive: Moderate (6-25 bmp) Accelerations: positive: Present, 15x15 Decelerations: positive: None Strip Review: positive: Category I - Labor Progress Note Labor Progress Note/Additional Text: S: Left side lying. Comfortable with epidural and dozing on off. She was able to get a little sleep throughout the night. tolerating position changes, coping well, understands situation after our discussions, feels well informed. O: FHR baseline 130-135, moderate variability, + accels, - significant decels. Overall reassuring with moderate variability maintained throughout. SVE 8/90/-2 mid. Vertex. Membranes Ruptured. Clear fluid. A: 33yo @ 40+5 wks gestation by sure LMP Spontaneous labor FHR Category I GBS positive P: Initiate pitocin now for labor augmentation at 2mU/mL with titration per protocol. Continuous monitoring. Maintain epidural for pain management encourage rotations in bed on peanut ball Reviewed plan of care with oncall physician who placed pitocin order Anticipate . ASHA Hall, Student Nurse Academic Affairs Director
[2023-08-19] MEDS: OXYTOCIN/SODIUM CHLORIDE 500 ML IV SCH (07:09)
[2023-08-19] MEDS: ROPIVACAINE 0.2% 200 MG/100 ML BAG EP PRN (10:35)
[2023-08-19] MEDS ORDERED: PHENYLEPHRINE 10 MG/ML VIAL ONE (12:45)
[2023-08-19] MEDS ORDERED: AZITHROMYCIN INJ 500 MG in SODIUM CHLORIDE 0.9% 250 ML IV SCH ×2 (13:00→14:00)
[2023-08-19] MEDS ORDERED: DEXMEDETOMIDINE 200 MCG/2 ML VIAL ONE (13:22)
[2023-08-19] MEDS ORDERED: SODIUM CHLORIDE 0.9% 10 ML VIAL IVP ONE ×2 (14:00→14:01)
[2023-08-19] MEDS ORDERED: ROPIVACAINE 0.5% PF 20 ML VIAL ONE (14:00)
[2023-08-19] MEDS ORDERED: MORPHINE 2 MG/ML CARPUJECT IVP PRN (15:05)
[2023-08-19] MEDS ORDERED: fentaNYL 100 MCG/2 ML VIAL IVP PRN (15:05)
[2023-08-19] MEDS ORDERED: METOCLOPRAMIDE 10 MG/2 ML VIAL IVP PRN ×2 (15:05→15:14)
[2023-08-19] MEDS ORDERED: ATROPINE ABBOJECT 1 MG/10 ML SYRINGE IVP PRN (15:05)
[2023-08-19] MEDS ORDERED: ONDANSETRON 4 MG/2 ML VIAL IVP PRN ×2 (15:05→15:14)
[2023-08-19] MEDS ORDERED: HYDROmorphone 0.5 MG/0.5 ML SYRINGE IVP PRN (15:05)
--- NOTE | 2023-08-19 15:11 | PHARMACY PROGRESS NOTE ---
- Best Possible Medication History Admit Date and Time: 08/18/23 0942 Processed by: Nursing Medications reviewed in ED?: No Patient Interview: Pt unable to participate Secondary Source(s): Insurance records As the person ultimately responsible for medication therapy, providers are able to order a medication from an existing home medication list in [facility] via the "Reconcile Routine" prior to Confirmation of that medication by client support associate. S uch practice is discouraged except when the physician, in their clinical judgment, deems that a medical need exists for a medication without regard to previous use.
[2023-08-19] MEDS ORDERED: SIMETHICONE CHEW 80 MG TABLET PO PRN (15:14)
[2023-08-19] MEDS ORDERED: diphenhydrAMINE 25 MG CAPSULE PO PRN (15:14)
[2023-08-19] MEDS ORDERED: LABETALOL 20 MG/4 ML SYRINGE IVP PRN ×3 (15:14)
[2023-08-19] MEDS ORDERED: hydrALAZINE INJ 20 MG/ML VIAL IVP PRN ×2 (15:14)
[2023-08-19] MEDS ORDERED: CALCIUM CARBONATE CHEW 500 MG TABLET PO PRN (15:14)
[2023-08-19] MEDS ORDERED: NIFEdipine 10 MG CAPSULE PO PRN (15:14)
[2023-08-19] MEDS ORDERED: OXYTOCIN/SODIUM CHLORIDE 500 ML IV PRN (15:14)
--- NOTE | 2023-08-19 15:20 | PROVIDER PROGRESS NOTE ---
Progress Note at 0850 IUPC was placed. no cervical change, really for about 12 hours. not adequate contractions. will see what IUPC and more pitocin gets us, otherwise she will need a c section. VSS fetus cat 1 no concerns. gbs + and has had 4 dose amp.
--- NOTE | 2023-08-19 15:22 | HISTORY & PHYSICAL EXAMINATION ---
HPI - Admitted From Admitted from: OB - History Obtained From Records Reviewed: RN notes reviewed History obtained from: Patient - History of Present Illness HPI Comment/Other: has been about 7 cm since last evening. now with adequate contractions for many hours and minimal change. agrees to c section. 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: Breast implants Cardiovascular: positive: Other (Bilateral thoracotomy) Social & Family Hx - Social History Does the pt smoke?: No Smoking Status: Never smoker Does the pt drink ETOH?: No Meds/Allgy - Home Medications Home Medications: Ambulatory Orders Medication Instructions Recorded Confirmed No122/Iron/Folic Acid 1 tab PO DAILY 06/13/23 08/18/23 [ Multi Tablet] - Allergies Allergies/Adverse Reactions: Allergies Allergy/AdvReac Type Severity Reaction Status Date / Time No Known Drug Allergies Allergy Verified 06/13/23 11:06 Exam - Vital Signs Reviewed Vital Signs: Yes Vital Signs: Vital Signs x48h Temp Pulse Resp BP Pulse Ox 08/19/23 15:00 97.5 F L 72 20 94/60 99 08/19/23 14:59 97.5 F L 76 20 107/50 L 99 08/19/23 14:50 97.5 F L 76 20 107/50 L 99 08/19/23 14:45 97.5 F L 78 20 108/79 99 - Physical Exam General Appearance: positive: No acute distress Respiratory: positive: No respiratory distress Cardiovascular: positive: Regular rate & rhythm Comments/Other: cervix 8/+1 minimal change since last exam. FHT category 1. some early decels. Results - Lab Results Fish Bones: 08/18/23 09:45 Impression/Plan - Problem List Problem List: failure to dilate past 8 cm. IUPC with adequate contractions for at least the last 3 hours. multiple position changes. feeling more pressure. plan primary low transverse c section. procedure, risks discussed. consents signed.
--- NOTE | 2023-08-19 15:30 | OPERATIVE REPORT ---
Operative Report - General Admit Date: 08/18/23 Procedure Date: 08/19/23 Planned Procedure: low transverse c section Pre-Op Diagnosis: term in spontaneous labor. Arrest of dilation Procedure Performed: primary low transverse c section Post Op Diagnosis: same - Procedure Note Primary Surgeon: Isa Van MD Secondary Surgeon: ASHA Beyer Anesthesia Provider: Margarito Escobar Anesthesia Technique: Epidural, Regional block (with TAP block) Pathology: none IV Fluids (mL): 600 Estimated Blood Loss (mL): 300 Urine Output (mL): 175 Drain/Tube Type: Other (oquendo in bladder) Findings: live male infant with Apgars of 8/8. 3616 gram. 19.5 in long. uterus, tubes and ovaries appear normal. Complications: none - Other Other Information/Narrative: Indications for Procedure: Patient is a 33 year-old woman, G1 wtih at 40+ weeks. presented in spontaneous labor and progressed well to 7 cm. She received epidural after no further change, pitocin, SROM still 7 cm after 12+ hours. IUPC placed. adequate contractions over next 3 hours and minimal change. recommend LTCS. She has signed consents. Procedure Details The risks, benefits, complications, treatment options, and expected outcomes were discussed with the patient. The patient concurred with the proposed plan, giving informed consent. The patient was taken to the Operating Room. She had just received her 5th dose of Ampicillin for GBS so Cefazolin was not given. She had sequential compression devices on her lower extremities. Oquendo catheter was in place from her epidural. Azithromycin 500 mg was ordered and then did not go in until after delivery. A Time Out was held and the above information confirmed. The patient was prepped in the usual sterile manner. Drapes were placed. Anesthesia was tested and found to be adequate. A Pfannenstiel incision was made and carried down through the subcutaneous tissue to the fascia. Fascial incision was made and extended transversely. The fascia was from the underlying rectus tissue superiorly and inferiorly. The peritoneum was identified and entered. Peritoneal incision was stretched. The Oswaldo retractor was placed and rolled down. The uterus was palpated to examine lie. A low transverse uterine incision was made. The incision was stretched manually. Bag of water was entered during the process and fluid was clear. The baby's head was elevated through the incision. The baby was delivered and brought up towards her chest to show mom. Baby was dried and stimulated. I waited for 1 minute to clamp the cord. After the umbilical cord was clamped and cut, cord blood was obtained for evaluation. The placenta was removed intact using gentle traction and appeared normal. The uterine outline, tubes and ovaries appeared normal. The uterine incision was closed with running locked sutures of 0 Monocryl suture. A second horizontal imbricating layer was placed with the same suture. Hemostasis was observed. Tubes and ovaries were examined. A small paratubal cyst on the left was clamped off and removed with bovie. The Oswaldo retractor was removed. Rectus muscles were examined carefully for bleeding. The fascia was then reapproximated with running sutures of 0 Vicryl. The subcutaneous tissue was brought together with 3.0 Monocryl suture and the skin was closed with 4.0 Vicryl in subcuticular fascia. Wide steri strip was placed over the wound. Bandage was placed. Uterus was expressed. Fundus was firm. Patient was then brought to the PACU in stable condition. Instrument, sponge, and needle counts were correct prior the abdominal closure and at the conclusion of the case. My certified surgical assistant was scrubbed and present during the entire procedure and assisted with visualization, hemostasis, fundal pressure for delivery, and closure. Findings: Tubes, ovaries and uterus all appeared normal. Drains: Oquendo catheter to gravity Specimens: none Complications: None; patient tolerated the procedure well. Condition: stable Plan: Routine post op care
[2023-08-19] MEDS ORDERED: LACTATED RINGERS 1,000 ML IV SCH (16:00)
--- NOTE | 2023-08-19 16:51 | ANESTHESIA POST OP EVALUATION ---
Anesthesia Post Eval - Post Anesthesia Eval Vitals: Last Vital Signs Temp 36.4 C L 08/19/23 15:00 Pulse 72 08/19/23 15:00 Resp 20 08/19/23 15:00 BP 94/60 08/19/23 15:00 Pulse Ox 99 08/19/23 15:00 O2 Flow Rate CV Function Including HR & BP: Stable Pain Control: Satisfactory Nausea & Vomiting: Negative Mental Status: Baseline Respiratory Status: Airway Patent Hydration Status: Satisfactory Anesthesia Complications: None
[2023-08-19] MEDS: KETOROLAC 30 MG/ML VIAL IVP SCH (16:59)
[2023-08-19] MEDS: ACETAMINOPHEN 500 MG TABLET PO SCH (16:59)
[2023-08-19] MEDS: SODIUM CHLORIDE FLUSH 0.9% 10 ML SYRINGE IVP SCH (23:09)
[2023-08-19] MEDS: DOCUSATE SODIUM 100 MG CAPSULE PO SCH (23:09)
[2023-08-20] MEDS: oxyCODONE 5 MG TABLET PO PRN (00:09)
[2023-08-20] MEDS: SODIUM CHLORIDE FLUSH 0.9% 10 ML SYRINGE IVP PRN (05:28)
[2023-08-20 07:48] LABS: HCT - HEMATOCRIT 33.1 % (37.0-47.0); HGB - HEMOGLOBIN 10.6 g/dL (12.0-16.0); MEAN CORPUSCULAR HEMOGLOBIN 30.5 pg (27.0-31.0); MEAN CORPUSCULAR VOLUME 95.1 fL (81.0-99.0); MEAN PLATELET VOLUME 12.1 fL (7.9-10.8); RED BLOOD COUNT 3.48 10^6/uL (4.20-5.40); RED CELL DISTRIBUTION WIDTH 13.6 % (12.0-15.0); WHITE BLOOD COUNT 12.9 x10^3/uL (4.8-10.8)
[2023-08-20] MEDS: IBUPROFEN 600 MG TABLET PO SCH (11:45)
[2023-08-20] MEDS: PRENATAL VITAMIN TABLET PO SCH (11:45)
--- NOTE | 2023-08-20 12:22 | PROVIDER PROGRESS NOTE ---
Subjective - Prog Note Date Prog Note Date: 08/20/23 Prog Note Time: 12:00 - Subjective Pt reports feeling: Improved Subjective: Comfortable with pain medications. Appropriate lochia. Ambulating. Voiding. Passing flatus. Tolerating regular diet. . Mood is good. Objective - Vital Signs/Intake & Output Reviewed Vital Signs: Yes Vital Signs: Vital Signs x48h Temp Pulse Resp BP Pulse Ox 08/20/23 08:00 98.0 F 67 16 103/54 L 08/20/23 05:00 61 15 94/52 L 97 Intake & Output: Intake & Output 08/17/23 08/18/23 08/19/23 08/20/23 23:59 23:59 23:59 23:59 Intake Total 1300 1727.233 291.667 Output Total 1100 1050 Balance 1300 627.233 -758.333 - Objective General Appearance: positive: No acute distress Eyes Bilateral: positive: EOMI Respiratory: positive: No respiratory distress Abdomen: positive: Other (Dressing c/d/i) Skin: positive: Color nml Extremities: positive: Non-tender Neurologic/Psychiatric: positive: Oriented x3 - Lab Results Fish Bones: 08/20/23 07:34 Other Labs: Lab Results x24hrs 08/20/23 Range/Units 07:34 WBC 12.9 H (4.8-10.8) x10^3/uL RBC 3.48 L (4.20-5.40) 10^6/uL Hgb 10.6 L (12.0-16.0) g/dL Hct 33.1 L (37.0-47.0) % MCV 95.1 (81.0-99.0) fL MCH 30.5 (27.0-31.0) pg MCHC 32.0 (32.0-36.0) g/dL RDW 13.6 (12.0-15.0) % Plt Count 135 (130-450) 10^3/uL MPV 12.1 H (7.9-10.8) fL Assessment/Plan - Problem List (1) care following delivery Impression: 33yo s/p PCD 08/19/23 for FTP (7cm), POD#1 doing well - Continue , postoperative care - Anticipate discharge tomorrow
--- NOTE | 2023-08-21 13:53 | PROVIDER PROGRESS NOTE ---
Subjective - Subjective Subjective: Subjective Patient reports she is doing well. Lochia appropriate. Denies heavy bleeding. Ambulating. Pelvic and abdominal pain well-controlled. Tolerating oral intake. Diet: Regular. Voiding without difficulty. Passing flatus. Denies BM. Patient is bonding with baby in room Breast feeding going well. Denies feeling lightheaded, dizzy or excessively fatigued. Objective General: Alert, oriented, no apparent distress. Cardiovascular: Regular rate. Regular rhythm. Lungs: No increased work of breathing. Abdomen: Uterus firm. Below umbilicus. No guarding or rebound. Extremities: No pain on palpation. No cords palpated. Distal pulses intact. Incision: Clean, dry, and intact. Bandage removed today. Assessment and Plan day 1. -Routine care -Anticipate discharge tomorrow Status post primary low-transverse section -Routine postoperative care Objective - Vital Signs/Intake & Output Vital Signs: Vital Signs x48h Temp Pulse Resp BP Pulse Ox 08/21/23 12:21 97.7 F 61 16 116/59 L 99 08/21/23 06:00 98.9 F 74 16 116/68 99 Intake & Output: Intake & Output 08/18/23 08/19/23 08/20/23 08/21/23 23:59 23:59 23:59 23:59 Intake Total 1300 1727.233 291.667 800 Output Total 1100 1050 Balance 1300 627.233 -358.333 800 - Lab Results Fish Bones: 08/20/23 07:34
[2023-08-22 14:17] VITALS: BP 132/78; O2SAT 97
--- NOTE | 2023-08-22 16:44 | Labor Flowsheet ---
Labor Flowsheet Datetime Report Generated by CPN: 08/22/2023 16:44 Datetime: 08/22/2023 14:11 VITAL SIGNS NBP Sys/Leyla/Mean (mmHg): 146 : 87 : 101 Pulse: 72 LaborFlag: Labor Datetime: 08/19/2023 12:42 Contraction Comments: IUPC removed Datetime: 08/19/2023 12:35 SpO2 (%): 100 Anesthesia Comments: S. Escobar, SENIOR PROCESS ENGINEER at bedside to dose epidural for c/s Datetime: 08/19/2023 12:30 UTERINE ACTIVITY Monitor Mode: Internal Frequency (min): 1.5-3 Quality: Strong Duration (sec): 60-90 Pattern: Normal: <= 5 Contractions in 10 Minutes Resting Tone (Palpate): Relaxed Pitocin Checklist: At Least 1 Acceleration of 15 bpm x 15 Seconds in 30 Minutes or Adequate Variabi lity; No More than 1 Late Deceleration Occurred in Past 30 Minutes; No More than 2 Variable Decelerat ions > 60 Seconds in Duration and decreasing >60 bpm in 30 minutes; No More than 5 Uterine Contractio ns in 10 Minutes for any 20 Minute Interval; Uterus Palpates Soft between Contractions; IUPC Resting Tone less than 25 mmHg MONTEVIDEO UNITS (Computed) Contractions in Ten Minutes: 5 IUPC Average Intensity: 70 IUPC Average Resting Tone: 25 Hamlin Units (mmHg): 225 ASSESSMENT A Monitor Mode: External US FHR Baseline Rate : 135 Variability: Moderate 6-25 bpm Accelerations: 15X15 Decelerations: None Category: Category I Datetime: 08/19/2023 12:22 Exam by: Dr. Van Vaginal Exam Comments: unchanged MEDICATIONS Pitocin (milliunits): Discontinued Communication Comments: Patient agreeable to C/S at this time. Datetime: 08/19/2023 12:01 Patient Position/Activity: Left Lateral Datetime: 08/19/2023 11:45 COMMUNICATION Communication: RN Reviewed Strip Datetime: 08/19/2023 11:38 Antibiotics: Ampicillin IV 1 Gm Datetime: 08/19/2023 11:00 Temperature (C): 36.6 Datetime: 08/19/2023 10:59 Patient Care Comments: flying cowgirl- on peanut ball Datetime: 08/19/2023 09:00 FHR Baseline Changes: No Baseline Change Datetime: 08/19/2023 08:47 VAGINAL EXAM Dilatation (cm): 7.0 Effacement (%): 80 Station: -1 Datetime: 08/19/2023 08:46 Monitor Interventions for UA: IUPC Inserted Datetime: 08/19/2023 06:38 Anesthesia Level Check: T6- Xyphoid Datetime: 08/19/2023 06:28 TEACHING Instructional Method: Verbal Plan of Care: Plan of Care Discussed Labor/Induction: Augmentation Medications: Pitocin Datetime: 08/19/2023 06:22 Provider Notified (Name): K. Burckhardt, PHYSICIST [employer] [facility] Datetime: 08/19/2023 06:09 Respirations: 14 Datetime: 08/19/2023 04:57 Pain Coping: Sleeping Datetime: 08/19/2023 04:51 PATIENT CARE IV/Blood Work: IV Infusing per Order Datetime: 08/19/2023 02:48 I/O Interventions: Roth Cath Inserted Datetime: 08/19/2023 02:19 Epidural Procedure: Completed Datetime: 08/19/2023 01:55 PROCEDURE TIME OUT Procedure Verify: Correct Patient Identity; Accurate Procedure Consent Form ANESTHESIA Anesthesia Plans: Epidural Datetime: 08/19/2023 01:23 Pain Assessment Comments: pt requesting epidural Pain Management: Epidural; Comfort Measures Datetime: 08/19/2023 00:36 Nausea/Vomiting: Present Datetime: 08/19/2023 00:22 Cervix, Consistency: Soft Cervix, Position: Posterior Datetime: 08/19/2023 00:21 Membrane Status: Ruptured Membranes Rupture Method: Spontaneous Amniotic Fluid Color: Clear Amniotic Fluid Amount: Small Datetime: 08/18/2023 23:03 Pain Type: Contraction Pain Relief Measures: Comfort Measures Comfort Measures: Breathing/Relaxation; Back Rub Given; Family Support Datetime: 08/18/2023 21:19 Vital Sign Comments: manual check on pulse Datetime: 08/18/2023 21:13 PAIN Pain Scale: 9 Datetime: 08/18/2023 21:00 Comments: interrupted strip pattern d/t maternal repositioning Datetime: 08/18/2023 19:27 MATERNAL ASSESSMENT Headache: Denies Related: Common Discomforts of Datetime: 08/18/2023 19:25 Membranes Ruptured Date/Time: 08/19/2023 00:21 Amniotic Fluid Odor: None Datetime: 08/18/2023 12:54 Pain Goal: 8 Datetime: 08/18/2023 10:22 Temperature Route: Oral Datetime: 08/18/2023 10:15 Stage of : Labor Datetime: 08/18/2023 06:43 Vaginal Bleeding: None
--- NOTE | 2023-08-26 21:44 | DISCHARGE SUMMARY ---
"Discharge Summary Admit Date: 08/18/23 Discharge Date: 08/22/23 Discharging Provider: Isa Van MD Code Status: Attempt Resuscitation Condition at Discharge: Good - DIAGNOSES Admission Diagnoses: term in labor Discharge Diagnoses with Status of Each Condition: term in labor, failure to progress past 8 cm primary c section performed without complication - HPI History of Present Illness: presented in labor at term. uncomplicated . - CONSULTS | PROCEDURES Procedures: c section - HOSPITAL COURSE Hospital Course: Patient labored without epidural and then with epidural and then pitocin and IUPC. Did not progress past 8 cm. Primary low transverse c section performed without complications. Post op course was unremarkable. She was discharged home on pod #3. - ALLERGIES Allergies/Adverse Reactions: Allergies Allergy/AdvReac Type Severity Reaction Status Date / Time No Known Drug Allergies Allergy Verified 06/13/23 11:06 - MEDICATIONS Home Medications: Ambulatory Orders Medication Instructions Recorded Confirmed No122/Iron/Folic Acid 1 tab PO DAILY 06/13/23 08/18/23 [ Multi Tablet] - PHYSICAL EXAM AT DISCHARGE General Appearance: positive: No acute distress Respiratory: positive: No respiratory distress Cardiovascular: positive: Regular rate & rhythm Abdomen: positive: Other (approriately tender. wound healing well. ) - LABS Result Diagrams: 08/20/23 07:34 - FOLLOW UP Follow Up: 1-2 weeks - TIME SPENT Time Spent in Discharge (Minutes): 30"
== END 2023-08-22 16:15 | disposition home or self-care (01) | DRG 788 ==
LOC: WFO 06:31 → FBP 06:32 → WFO 06:33 → FBP 06:33 → WFO 09:41 → FBP 09:42
PROVIDERS: ADMIT Obstetrics & Gynecology; ATTEND Obstetrics & Gynecology
PROC: 10H07YZ Insertion of Other Device into Products of Conception, Via Natural or Artificial Opening (ICD-10-PCS; 2023-08-19)
PROC: 10D00Z1 Extraction of Products of Conception, Low, Open Approach (ICD-10-PCS; principal; 2023-08-19 12:30)
DX: O48.0 Post-term pregnancy (principal); O62.0 Primary inadequate contractions; Z3A.40 40 weeks gestation of pregnancy; Z37.0 Single live birth; O99.824 Streptococcus B carrier state complicating childbirth
CPT/HCPCS: 36415; 59025; 85025; 85027; 86850; 86900; 86901; 99215; A9270; J2795; J7120